=== PATIENT | female | born 1960 | race African-American/Black ===

== ENCOUNTER 2021-08-25 00:43 | Emergency (ER) | payer OTHER ==
[~2021-08-25] VITALS: Ht 170.2 cm; Wt 80.0 kg
[~2021-08-25 00:43] MED LIST: XANAX
[2021-08-25 00:51] VITALS: BP 163/85
[2021-08-25 01:42] LABS: HEMATOCRIT. 36.9 % (36.0-48.0); HEMOGLOBIN. 12.1 g/dL (12.0-16.0); MEAN CORPUSCULAR HEMOGLOBIN 31.3 pg (28.0-32.0); MEAN CORPUSCULAR VOLUME 95.6 fL (81.0-99.0); MEAN PLATELET VOLUME 7.4 fl (7.4-10.4); PLATELET 264 x1000/uL (130-400); RED BLOOD CELL COUNT 3.86 mill/uL (4.2-5.4)
[2021-08-25 01:48] LABS: CHLORIDE 108 mEq/L (98-107)
[2021-08-25 08:29] LABS: ATYPICAL LYMPHOCYTES 1; PLATELET ESTIMATE NORMAL
== END 2021-08-25 03:08 | disposition left against medical advice (07) ==
LOC: ER 00:43
DX: Z53.21 Procedure and treatment not carried out due to patient leaving prior to being seen by health care provider (principal)
CPT/HCPCS: 36415; 80053; 83880; 84484; 85025; 93005; 99284

== ENCOUNTER 2022-01-27 01:54 | Emergency (ER) | payer OTHER ==
[~2022-01-27] VITALS: Ht 162.6 cm; Wt 82.0 kg
[2022-01-27 02:05] VITALS: BP 114/72
[2022-01-27] MEDS ORDERED: KETOROLAC 60MG/2ML VIAL IM ONE (05:45)
== END 2022-01-27 07:10 | disposition left against medical advice (07) ==
LOC: ER 01:54
DX: M54.50 Low back pain, unspecified (principal); F41.9 Anxiety disorder, unspecified; Z85.9 Personal history of malignant neoplasm, unspecified; Z90.710 Acquired absence of both cervix and uterus
CPT/HCPCS: 96372; 99283; J1885